=== PATIENT | female | born 1950 | race Caucasian/White ===

== ENCOUNTER 2017-12-10 14:37 | Inpatient (IN) ==
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
[2017-12-10] MEDS ORDERED: Insulin Regular, Human 100 UNIT/ML SQ ONE (14:47)
[2017-12-10] MEDS ORDERED: Ondansetron 4 MG/2 ML VIAL IVP ONE (14:47)
[2017-12-10] MEDS ORDERED: 0.9 % Sodium Chloride 1,000 ML IVC ONE (14:47)
[2017-12-10 15:09] LABS: Basophils % 0.1 %; Eosinophils % 0.1 %; Hematocrit 32.5 % (35.3-44.9); Immature Granulocytes % 0.6 % (0-4); Lymphocytes # 0.5 K/mcL (0.6-4.6); Lymphocytes % 5.3 %; Mean Corpuscular HGB Conc 33.8 g/dL (31.6-35.5); Mean Corpuscular Hemoglobin 28.7 pg (28.0-33.3); Mean Corpuscular Volume 84.9 fL (83.0-100.0); Mean Platelet Volume 10.1 fL (9.4-12.4); Monocytes # 0.7 K/mcL (0.0-1.3); Monocytes % 7.5 %; Neutrophils # 8.2 K/mcL (1.6-8.9); Platelet Count 147 K/mcL (140-400); Red Blood Count 3.83 M/mcL (3.82-4.97); Red Cell Distribution Width 13.3 % (11.5-14.5); Segmented Neutrophils % 86.4 %
[2017-12-10 15:12] LABS: VBG HCO3 20 mEq/L (21-27); VBG PCO2 28 mmHg (41-51); VBG PH 7.47 pH Units (7.32-7.42); VBG PO2 68 mmHg (25-50)
[2017-12-10 15:28] LABS: Albumin 3.2 g/dL (3.5-5.7); Bilirubin,Total 0.9 mg/dL (0.3-1.0); Calcium 8.7 mg/dL (8.6-10.3); Globulin 3.3 g/dL (2.4-3.5); Potassium 3.7 mEq/L (3.5-5.1); Total Protein 6.5 g/dL (6.4-8.9)
[2017-12-10] MEDS ORDERED: Levofloxacin 750 MG/150 ML 750 MG/150 ML BAG IVPB ONE (15:39)
[2017-12-10 16:03] LABS: Bilirubin,Urine Negative (Negative); Blood,Urine Large (Negative); Clarity,Urine Cloudy (Clear); Color,Urine Yellow (Yellow); Glucose,Urine (UA) >=1000 mg/dL (Normal); Ketones,Urine Trace mg/dL (Negative); Leukocyte Esterase,Urine Moderate (Negative); Nitrite,Urine Positive (Negative); Protein,Urine 100 mg/dL (Neg-Trace); Urobilinogen,Urine Normal (Normal)
[2017-12-10 16:15] LABS: Bacteria,Urine Moderate per hpf (None-Few); RBC,Urine 50-100 per hpf (0-3); Squamous Epithelial Cell,Urine Few per lpf (None-Few); WBC,Urine TNTC per hpf (0-3)
[2017-12-10] MEDS ORDERED: Naloxone 0.4 MG/ML INJ IVP PRN (16:51)
[2017-12-10] MEDS ORDERED: Dextrose Gel 15 GM/37.5 ML TUBE PO PRN ×2 (16:52)
[2017-12-10] MEDS ORDERED: *HR* Dextrose 50 % in Water (Syg) 50 ML SYRINGE IVP PRN (16:52)
[2017-12-10] MEDS ORDERED: D5% in Water 1,000 ML IVC PRN (16:52)
[2017-12-10] MEDS ORDERED: Ondansetron 4 MG/2 ML VIAL IVP PRN (17:10)
[2017-12-10] MEDS: 0.9 % Sodium Chloride 1,000 ML IVC SCH ×2 (18:04→22:16)
[2017-12-10 20:18] LABS: Albumin 3.2 g/dL (3.5-5.7); Bilirubin,Total 0.7 mg/dL (0.3-1.0); Calcium 8.6 mg/dL (8.6-10.3); Globulin 3.3 g/dL (2.4-3.5); Potassium 3.6 mEq/L (3.5-5.1); Total Protein 6.5 g/dL (6.4-8.9)
[2017-12-10] MEDS: Insulin LISPRO 300 UNITS/3 ML VIAL SQ SCH (20:44)
[2017-12-10] MEDS ORDERED: Insulin DETEMIR 100 UNIT/ML per UNIT SQ ONE (21:00)
[2017-12-10] MEDS ORDERED: Insulin LISPRO 300 UNITS/3 ML VIAL SQ SCH (21:00)
[2017-12-11] MEDS ORDERED: traMADol 50 MG TABLET PO PRN (01:48)
[2017-12-11] MEDS ORDERED: Acetaminophen 325 MG TABLET PO PRN (01:49)
[2017-12-11] MEDS: *HR* Enoxaparin 40 MG/0.4 ML SYRINGE SQ SCH (05:27)
[2017-12-11 05:58] LABS: Alanine Aminotransferase 13 Units/L (7-52); Alkaline Phosphatase 69 Units/L (34-104); Aspartate Amino Transferase 12 Units/L (13-39); BUN/Creatinine Ratio 17 (6-26); Bilirubin,Total 0.7 mg/dL (0.3-1.0); Blood Urea Nitrogen 18 mg/dL (8-23); Calcium 8.2 mg/dL (8.6-10.3); Carbon Dioxide 21 mEq/L (23-29); Chloride 101 mEq/L (98-107); Globulin 2.9 g/dL (2.4-3.5); Glucose 212 mg/dL (70-105); Osmolality,Calculated 278 (280-300); Potassium 3.5 mEq/L (3.5-5.1); Sodium 130 mEq/L (136-145); Total Protein 5.9 g/dL (6.4-8.9); eGFR For Non-African Americans 52 (> 60)
[2017-12-11] MEDS ORDERED: Insulin LISPRO 300 UNITS/3 ML VIAL SQ SCH (07:30)
[2017-12-11] MEDS ORDERED: Ondansetron ODT 4 MG TAB.RAPDIS SL PRN (07:47)
[2017-12-11] MEDS: hydroCHLOROthiazide 25 MG TABLET PO SCH (07:53)
[2017-12-11] MEDS: *HR* Glimepiride 4 MG TABLET PO SCH (07:53)
[2017-12-11] MEDS: Lisinopril 20 MG TABLET PO SCH (07:53)
[2017-12-11] MEDS: Insulin LISPRO 300 UNITS/3 ML VIAL SQ SCH ×4 (07:55→21:45)
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
[2017-12-11 08:57] LABS: Acinetobacter baumannii by PCR Not Detected (Not Detect); Candida albicans by PCR Not Detected (Not Detect); Candida glabrata by PCR Not Detected (Not Detect); Candida krusei by PCR Not Detected (Not Detect); Candida parapsilosis by PCR Not Detected (Not Detect); Candida tropicalis by PCR Not Detected (Not Detect); Enterobacter cloacae Cmplx PCR Not Detected (Not Detect); Enterobacteriaceae by PCR DETECTED (Not Detect); Enterococcus by PCR Not Detected (Not Detect); Escherichia coli by PCR DETECTED (Not Detect); Klebsiella oxytoca by PCR Not Detected (Not Detect); Klebsiella pneumoniae by PCR Not Detected (Not Detect); Proteus by PCR Not Detected (Not Detect); Pseudomonas aeruginosa by PCR Not Detected (Not Detect); Serratia marcescens by PCR Not Detected (Not Detect); Staphylococcus aureus by PCR Not Detected (Not Detect); Staphylococcus by PCR Not Detected (Not Detect); Streptococcus agalactiae(B)PCR Not Detected (Not Detect); Streptococcus by PCR Not Detected (Not Detect); Streptococcus pneumoniae PCR Not Detected (Not Detect); Streptococcus pyogenes (A) PCR Not Detected (Not Detect); blaKPC Carbapenem-Resist Gene Not Detected (Not Detect); mecA Methicillin-Resist Gene Not Detected (Not Detect); vanA/B Vancomycin-Resist Genes Not Detected (Not Detect)
[2017-12-11] MEDS ORDERED: Levofloxacin 750 MG/150 ML 750 MG/150 ML BAG IVPB SCH (09:00)
[2017-12-11] MEDS ORDERED: Piperacillin/Tazobactam 3.375 GM in 0.9 % Sodium Chloride Mini Bag 100 ML IVPB SCH (10:00)
[2017-12-11] MEDS: Piperacillin/Tazobactam 3.375 GM in 0.9 % Sodium Chloride Mini Bag 100 ML IVPB SCH ×2 (13:59→21:34)
[2017-12-11] MEDS: Insulin DETEMIR 100 UNIT/ML X5UNITS SQ SCH (21:46)
[2017-12-12] MEDS: *HR* Enoxaparin 40 MG/0.4 ML SYRINGE SQ SCH (05:18)
[2017-12-12] MEDS: Piperacillin/Tazobactam 3.375 GM in 0.9 % Sodium Chloride Mini Bag 100 ML IVPB SCH ×3 (05:19→21:44)
[2017-12-12] MEDS: Insulin LISPRO 300 UNITS/3 ML VIAL SQ SCH ×4 (07:39→20:31)
[2017-12-12] MEDS: hydroCHLOROthiazide 25 MG TABLET PO SCH (08:46)
[2017-12-12] MEDS: *HR* Glimepiride 4 MG TABLET PO SCH (08:46)
[2017-12-12] MEDS: Lisinopril 20 MG TABLET PO SCH (08:46)
--- NOTE | 2017-12-12 09:53 | Internal Med Progress Note ---
Date of Encounter: 12/12/17 Time of Encounter: 09:51 - Assessment and plan (1) Sepsis Current Visit: Yes Status: Acute Assessment and plan: Patient was admitted for UTI and altered mental status. Blood cultures show positive for Escherichia coli. Patient continues on Zosyn. Patient had a fever yesterday of 100.7 but has been afebrile since that time. Vital signs have been stable. We will continue to monitor. Qualifiers: Sepsis type: Escherichia coli Qualified Code(s): A41.51 - Sepsis due to Escherichia coli [E. coli] (2) Hyperglycemia Current Visit: Yes Status: Chronic Assessment and plan: Patient continues to have elevated glucose, which has decreased quite a bit since admission. Glucose per fingersticks has been managed with sliding scale. We will continue with current medications and we will obtain a hemoglobin A1c on next blood draw. (3) UTI (urinary tract infection) Current Visit: Yes Status: Acute Assessment and plan: Patient Rubina UTI and currently has positive blood cultures both showing Escherichia coli. Patient continues on Zosyn. Denies any dysuria. Afebrile over the past 24 hours. We will continue with current plan of care. Qualifiers: Urinary tract infection type: acute cystitis Hematuria presence: without hematuria Qualified Code(s): N30.00 - Acute cystitis without hematuria (4) HTN (hypertension) Current Visit: Yes Status: Chronic Assessment and plan: Vital signs stable. We will continue with current medications. Qualifiers: Hypertension type: essential hypertension Qualified Code(s): I10 - Essential (primary) hypertension - Time Spent With Patient less than 15 minutes - Subjective Interval history: Patient with complaints of moderate nausea over the past 24 hours. Patient stated that she vomited yesterday and small amount but has not had any peaked vomiting since starting on Phenergan when necessary. Patient states that she has had a history of Canela's esophagus and colitis in the past and has followed up with a broomcorn scraper, but has not seen him in almost 3 years during which time she had a colonoscopy. Patient states that she feels her abdomen is slightly distended but is nontender. States that she had a bowel movement yesterday and has been passing gas. Denies any other discomforts or shortness of breath. Denies any fever or chills. Denies any dysuria - Constitutional Vitals: Temp Pulse Resp BP Pulse Ox 98.9 F 87 18 109/65 95 12/12/17 06:52 12/12/17 06:52 12/12/17 06:52 12/12/17 06:52 12/12/17 06:52 General appearance: Present: A&O X 3, morbidly obese, pleasant, answers questions appropriately - Head Head exam: Present: atraumatic, normocephalic - Eye Eye exam: Present: PERRL, conjuntiva pink, sclera anicteric Pupils: Present: PERRL - Neck Neck exam general surgery: Present: supple, trachea midline. Absent: lymphadenopathy - Respiratory Respiratory exam: Present: CTAB. Absent: accessory muscle use, rales, rhonchi, wheezes - Cardiovascular Cardiovascular exam: Present: RRR, +S1, +S2. Absent: diastolic murmur, gallop, rubs, systolic murmur - GI/Abdominal GI/Abdominal exam: Present: normal bowel sounds, soft, no peritoneal signs. Absent: distended, tenderness Additional comments: Abdomen appears slightly distended but remains soft and nontender. Bowel sounds heard all quadrants. - Extremities Exam Extremities exam: Present: warm, radial pulses palpable and symmetrical. Absent : calf tenderness, cyanotic, pedal edema - Neurological Exam Neurological exam: Present: CN II-XII intact, oriented X3, no focal deficits. Absent: pronater drift, facial droop, speech deficit - Skin Skin exam: Present: dry, intact Internal Medicine: Result - Labs CBC & Chem 7: 12/10/17 14:56 12/11/17 05:23 - VTE Reasons for not Prescribing Prophylaxis: Treatment not Indicated - Low risk for VTE Consult Discharge Plan - Plan Referrals: Geoffrey Causey, CASE AIDE [Primary Care Provider] -
[2017-12-12 12:04] LABS: Basophils % 0.3 %; Eosinophils # 0.2 K/mcL (0.0-0.6); Eosinophils % 2.3 %; Hematocrit 31.5 % (35.3-44.9); Hemoglobin 10.7 g/dL (11.5-15.4); Immature Granulocytes % 0.6 % (0-4); Lymphocytes # 1.4 K/mcL (0.6-4.6); Lymphocytes % 17.4 %; Mean Corpuscular Hemoglobin 28.8 pg (28.0-33.3); Mean Corpuscular Volume 84.7 fL (83.0-100.0); Mean Platelet Volume 9.5 fL (9.4-12.4); Monocytes # 0.6 K/mcL (0.0-1.3); Neutrophils # 5.7 K/mcL (1.6-8.9); Platelet Count 192 K/mcL (140-400); Red Blood Count 3.72 M/mcL (3.82-4.97); Red Cell Distribution Width 13.6 % (11.5-14.5); Segmented Neutrophils % 71.4 %
[2017-12-12 12:24] LABS: Albumin 2.8 g/dL (3.5-5.7); Albumin/Globulin Ratio 0.9 (1.1-2.2); Bilirubin,Total 0.6 mg/dL (0.3-1.0); Calcium 8.6 mg/dL (8.6-10.3); Globulin 3.1 g/dL (2.4-3.5); Potassium 3.2 mEq/L (3.5-5.1); Total Protein 5.9 g/dL (6.4-8.9)
[2017-12-12 14:46] LABS: Amylase 23 Units/L (29-103); Lipase 27 Units/L (11-82)
[2017-12-12] MEDS: Insulin DETEMIR 100 UNIT/ML X5UNITS SQ SCH (20:32)
[2017-12-13 05:38] LABS: Calcium 8.8 mg/dL (8.6-10.3); Potassium 3.6 mEq/L (3.5-5.1)
[2017-12-13] MEDS: Piperacillin/Tazobactam 3.375 GM in 0.9 % Sodium Chloride Mini Bag 100 ML IVPB SCH (05:48)
[2017-12-13] MEDS: *HR* Enoxaparin 40 MG/0.4 ML SYRINGE SQ SCH (05:48)
[2017-12-13] MEDS: Insulin LISPRO 300 UNITS/3 ML VIAL SQ SCH ×4 (07:37→20:04)
[2017-12-13] MEDS: *HR* Glimepiride 4 MG TABLET PO SCH (08:48)
[2017-12-13] MEDS: Lisinopril 20 MG TABLET PO SCH (08:48)
[2017-12-13] MEDS: hydroCHLOROthiazide 25 MG TABLET PO SCH (08:48)
--- NOTE | 2017-12-13 11:02 | Internal Med Progress Note ---
Date of Encounter: 12/13/17 Time of Encounter: 11:00 - Assessment and plan (1) Nausea Current Visit: Yes Status: Acute Assessment and plan: No vomiting. Maintaining hydration. Continue Phenergan as needed. Likely due to antibiotics. Pancreatic enzymes normal. (2) HTN (hypertension) Current Visit: Yes Status: Chronic Assessment and plan: Controlled with current medication. Monitor blood pressure. Qualifiers: Hypertension type: essential hypertension Qualified Code(s): I10 - Essential (primary) hypertension (3) Sepsis Current Visit: Yes Status: Acute Assessment and plan: Continue IV antibiotics. Denies urinary symptoms. UTI improving. afebrile. Qualifiers: Sepsis type: Escherichia coli Qualified Code(s): A41.51 - Sepsis due to Escherichia coli [E. coli] - Time Spent With Patient less than 15 minutes - Subjective Interval history: States feeling better today. Slept okay last night. Does have nausea after meals. Pancreatic enzymes normal. Afebrile. Denies urinary symptoms. Receiving IV antibiotics for UTI sepsis. Denies vomiting or diarrhea. Had small bowel movement yesterday. Maintaining appetite and hydration. - Constitutional Vitals: Temp Pulse Resp BP Pulse Ox 98.6 F 69 16 107/61 96 12/13/17 06:27 12/13/17 06:27 12/13/17 06:27 12/13/17 06:27 12/13/17 06:27 General appearance: Present: A&O X 3, morbidly obese, pleasant, obese, answers questions appropriately - Head Head exam: Present: atraumatic, normocephalic - Eye Eye exam: Present: PERRL, conjuntiva pink, sclera anicteric Pupils: Present: PERRL - Neck Neck exam general surgery: Present: supple, trachea midline. Absent: lymphadenopathy - Respiratory Respiratory exam: Present: CTAB. Absent: accessory muscle use, rales, rhonchi, wheezes - Cardiovascular Cardiovascular exam: Present: RRR, +S1, +S2. Absent: diastolic murmur, gallop, rubs, systolic murmur - GI/Abdominal GI/Abdominal exam: Present: normal bowel sounds, soft, no peritoneal signs. Absent: distended, tenderness Additional comments: Nontender with light palpation. - Extremities Exam Extremities exam: Present: warm, radial pulses palpable and symmetrical. Absent : calf tenderness, cyanotic, pedal edema - Neurological Exam Neurological exam: Present: CN II-XII intact, oriented X3, no focal deficits. Absent: pronater drift, facial droop, speech deficit - Skin Skin exam: Present: dry, intact Internal Medicine: Result - Labs CBC & Chem 7: 12/12/17 11:55 12/13/17 05:15 Labs: Short CBC 12/12/17 Range/Units 11:55 WBC 8.0 (4.3-11.1) K/mcL Hgb 10.7 L (11.5-15.4) g/dL Hct 31.5 L (35.3-44.9) % Plt Count 192 (140-400) K/mcL Neutrophils # 5.7 (1.6-8.9) K/mcL BMP 12/12/17 12/13/17 11:55 05:15 Sodium 134 L 135 L Potassium 3.2 L 3.6 Chloride 102 102 Carbon Dioxide 26 26 BUN 17 18 Creatinine 1.20 1.17 Glucose 127 H 92 Calcium 8.6 8.8 Liver Function 12/12/17 Range/Units 11:55 Total Bilirubin 0.6 (0.3-1.0) mg/dL AST 18 (13-39) Units/L ALT 15 (7-52) Units/L Alkaline Phosphatase 75 (34-104) Units/L Albumin 2.8 L (3.5-5.7) g/dL - VTE Reasons for not Prescribing Prophylaxis: Treatment not Indicated - Low risk for VTE Consult Discharge Plan - Plan Referrals: Geoffrey Causey, ENGINEERING DOCUMENTATION SPECIALIST [Primary Care Provider] -
[2017-12-13] MEDS ORDERED: cefTRIAXone 2,000 MG in Water for inj. (sterile) 20 ML 20 ML IVP SCH (13:00)
[2017-12-13] MEDS: Insulin DETEMIR 100 UNIT/ML X5UNITS SQ SCH (20:05)
[2017-12-14] MEDS: *HR* Enoxaparin 40 MG/0.4 ML SYRINGE SQ SCH (04:37)
[2017-12-14] MEDS: Insulin LISPRO 300 UNITS/3 ML VIAL SQ SCH ×2 (07:36→11:31)
[2017-12-14] MEDS: Lisinopril 20 MG TABLET PO SCH (08:57)
[2017-12-14] MEDS: hydroCHLOROthiazide 25 MG TABLET PO SCH (08:57)
[2017-12-14] MEDS: *HR* Glimepiride 4 MG TABLET PO SCH (08:57)
--- NOTE | 2017-12-14 10:37 | Discharge Summary ---
- NOTES TO OUTPATIENT PROVIDER Notes to Outpatient Provider: scheduled for abd ultrasound. f/u with PCP in 1 week Date of Encounter: 12/14/17 Time of Encounter: 10:35 - Discharge Diagnosis (1) Nausea Priority: Secondary Status: Acute Comments: outpatient abd ultrasound. f/u with PCP. (2) HTN (hypertension) Priority: Secondary Status: Chronic Comments: Controlled with current medication. Monitor blood pressure. Follow up with PCP. Qualifiers: Hypertension type: essential hypertension Qualified Code(s): I10 - Essential (primary) hypertension (3) Sepsis Priority: Primary Status: Acute Comments: Improving. Will discharge with Keflex. Follow up with PCP and one week. Qualifiers: Sepsis type: Escherichia coli Qualified Code(s): A41.51 - Sepsis due to Escherichia coli [E. coli] Hospital course: Ms. Godoy is a 66 year old female discharging to home today. Will start Keflex 500 mg for times a day for 7 days. Follow up with PCP within one week. Instructed to return sooner if UTI symptoms arise or fever returns. Denies any questions at this time. Discharge discussed with: patient, nurse - Time Spent with Patient Total time spent providing and/or coordinating discharge services: Less than 30 minutes - Discharge Medications Home Medications: Atorvastatin [Lipitor] 40 mg PO HS 01/19/17 [History] Glimepiride [Amaryl] 4 mg PO DAILY 01/19/17 [History] Hydrochlorothiazide [Microzide] 25 mg PO DAILY 01/19/17 [History] Insulin Glargine [Lantus] 75 unit PO HS 01/19/17 [History] Lisinopril [Zestril] 40 mg PO DAILY 01/19/17 [History] Omeprazole [PriLOSEC] 20 mg PO DAILY 12/10/17 [History] Insulin LISPRO [HumaLOG] 0 units SQ HS vial 12/14/17 [Rx] Insulin LISPRO [HumaLOG] 0 units SQ TIDAC vial 12/14/17 [Rx] Potassium Chloride 20 meq PO TID tab.er.prt 12/14/17 [Rx] hydroCHLOROthiazide [Hydrochlorothiazide] 25 mg PO DAILY tablet 12/14/17 [Rx] Allergies/Adverse Reactions: 3 Allergy/AdvReac Type Severity Reaction Status Date / Time No Known Allergies Allergy Verified 01/19/17 13:52 Date of admission: 12/11/17 11:22 Primary care physician: Geoffrey Causey CNP Discharging clinician: Warner Garcia Anticipated date of discharge: 12/14/17 - Constitutional Vitals: Temp Pulse Resp BP Pulse Ox 97.6 F 70 16 105/57 94 12/14/17 06:50 12/14/17 06:50 12/14/17 06:50 12/14/17 06:50 12/14/17 06:50 General appearance: Present: cooperative, A&O X 3, morbidly obese, pleasant, obese, answers questions appropriately - Head Head exam: Present: atraumatic, normocephalic - Eye Eye exam: Present: PERRL, conjuntiva pink, sclera anicteric Pupils: Present: PERRL - Neck Neck exam general surgery: Present: supple, trachea midline. Absent: lymphadenopathy - Respiratory Respiratory exam: Present: CTAB. Absent: accessory muscle use, rales, rhonchi, wheezes - Cardiovascular Cardiovascular exam: Present: RRR, +S1, +S2. Absent: diastolic murmur, gallop, rubs, systolic murmur - GI/Abdominal GI/Abdominal exam: Present: normal bowel sounds, soft, no peritoneal signs. Absent: distended, tenderness Additional comments: slight RUQ tenderness with light palpation - Extremities Exam Extremities exam: Present: warm, radial pulses palpable and symmetrical. Absent : calf tenderness, cyanotic, pedal edema - Neurological Exam Neurological exam: Present: CN II-XII intact, oriented X3, no focal deficits. Absent: pronater drift, facial droop, speech deficit - Skin Skin exam: Present: dry, intact - Patient Status Disposition: Home, Self-Care Condition: Good Functional capacity at discharge: independent ambulation Overall status at discharge: patient is progressing back to baseline - Discharge Instructions Follow Up With: Geoffrey Causey CNP [Primary Care Provider] - Forms: ED Satisfaction Letter - Diet and Activity Activity: resume usual activities as tolerated Diet: diabetic diet - VTE Reasons for not Prescribing Prophylaxis: Treatment not Indicated - Low risk for VTE
[2017-12-14 11:21] VITALS: BP 107/57
== END 2017-12-14 13:00 | disposition home or self-care (01) | DRG 872 ==
LOC: EMEROOGRE 14:37 → INPGRE 14:37
PROVIDERS: ADMIT Internal Medicine; ATTEND Internal Medicine